=== PATIENT | female | born 1995 | race Caucasian/White ===

== ENCOUNTER → 2017-01-23 | Outpatient (CLI) | payer BC | LOC: COL.RAD 09:50 | DX: K21.9 Gastro-esophageal reflux disease without esophagitis (principal) ==

== ENCOUNTER → 2017-02-15 | Outpatient (CLI) | payer BC | LOC: COL.RAD 07:28 | DX: R11.2 Nausea with vomiting, unspecified (principal) | CPT/HCPCS: A9541 ==